=== PATIENT | female | born 1990 | race African-American/Black ===

== ENCOUNTER 2017-02-05 09:19 | Emergency (ER) | payer OTHER ==
[~2017-02-05] VITALS: Ht 154.9 cm; Wt 95.3 kg
[2017-02-05] MEDS ORDERED: SYMBICORT160 MCG/4. INH (09:36)
[2017-02-05] MEDS ORDERED: SINGULAIR 10 MG10 M1 PO (09:36)
[2017-02-05] MEDS ORDERED: PROAIR HFA8.5 GM INH (09:38)
[2017-02-05] MEDS ORDERED: TRINATE TABLET1 TAB PO (09:38)
[2017-02-05] MEDS ORDERED: CLARITIN10 MG PO (09:38)
[2017-02-05] MEDS ORDERED: PREDNISONE 20 M20 MG PO (09:39)
[2017-02-05 09:57] LABS: URINE BLOOD 3+ (Negative); URINE GLUCOSE-RANDOM* NEGATIVE (Negative); URINE KETONES NEGATIVE (Negative); URINE NITRITE NEGATIVE (Negative); URINE PROTEIN (DIPSTICK) 2+ (Negative); URINE SPECIFIC GRAVITY >= 1.030 (1.003-1.035); URINE UROBILINOGEN 0.2 E.U./dl (0.2-1.0)
[2017-02-05 09:59] LABS: URINE COLOR PINK
[2017-02-05 10:00] LABS: ICTOTEST (BILI CONFIRMATORY) Negative (Negative); URINE BILIRUBIN NEGATIVE (Negative)
[2017-02-05 10:18] LABS: SQUAMOUS >10 Many /LPF (0-3)
[2017-02-05 10:19] LABS: CASTS None Seen /LPF (None Seen); CRYSTALS None Seen /LPF (None Seen)
[2017-02-05 10:36] LABS: ABSOLUTE NEUTROPHILS 8.9 thou/uL (1.4-8.2); BASOPHILS 0.3 % (0.0-2.0); EOSINOPHILS 1.9 % (0.0-3.0); HEMATOCRIT 40.2 % (37.0-47.0); HEMOGLOBIN 13.5 gm/dL (12.0-15.0); LYMPHOCYTES 19.2 % (24.0-44.0); MCH 30.6 pg (26.0-34.0); MCHC 33.5 g/dL (28.0-37.0); MCV 91.3 fL (80.0-100.0); MONOCYTES 6.9 % (1.0-8.0); PLATELET COUNT 258 thou/uL (150-400); POLYS 71.7 % (36.0-66.0); RDW 13.3 % (10.5-14.5); WBC 12.5 thou/uL (4.0-11.0)
[2017-02-05 10:38] LABS: MANUAL DIFF NO
[2017-02-05 10:50] LABS: CALCIUM 9.1 mg/dL (8.5-10.1); CREATININE 1.1 mg/dL (0.6-1.0); POTASSIUM 4.1 mmol/L (3.5-5.1)
[2017-02-05 12:37] VITALS: BP 129/74
[2017-02-06 20:07] LABS: CHLAMYDIA TRACHOMATIS-PCR Negative (Negative); NEISSERIA GONORRHEA-PCR Positive (Negative)
== END 2017-02-05 12:38 | disposition home or self-care (01) ==
LOC: ER 09:19
PROVIDERS: Physician Assistant
DX: O20.0 Threatened abortion (principal); Z3A.01 Less than 8 weeks gestation of pregnancy; Z11.3 Encounter for screening for infections with a predominantly sexual mode of transmission; J45.909 Unspecified asthma, uncomplicated